=== PATIENT | male | born 1985 | race African-American/Black ===

== ENCOUNTER 2018-08-26 18:23 | Emergency (ER) | payer SELFPAY ==
--- NOTE | 2018-08-26 19:39 | ER Document Report ---
ED Medical Screen (RME) - General Chief Complaint: Chest Pain Stated Complaint: CHEST PAIN Time Seen by Provider: 08/26/18 19:32 TRAVEL OUTSIDE OF THE [place] IN LAST 30 DAYS: No - HPI Notes: 08/26/18 19:37 Patient is a 32-year-old male with no significant past medical history who presents to the emergency department complaining of right sternal chest pain that is been present for about 6 hours and is relatively constant. The pain does not radiate. Patient states there are times where he may feel short of breath, but it is not worsened by ambulation and he does not currently have any sitting in the chair. Patient states that he has had intermittent pain over the last several months. He is not aware of anything that improves or worsens his pain. Denies drug allergies. Patient does admit to smoking cigarettes. Denies any prolonged immobilization, distance travel, recent surgery/trauma, personal cancer history, hormone use, or previous DVT/PE. Denies any headache, fever, URI, sore throat, palpitations, syncope, cough, shortness of breath, wheeze, dyspnea, abdominal pain, nausea/vomiting/diarrhea, urinary retention, dysuria, hematuria. I have treated and performed a rapid initial assessment of this patient. A comprehensive ED assessment and evaluation of the patient, analysis of test results and completion of medical decision making process will be conducted by additional ED providers. PHYSICAL EXAMINATION: Vitals: Heart rate 88 during my exam in triage. GENERAL: Well-appearing, well-nourished and in no acute distress. A&Ox4. Answers questions appropriately. LUNGS: Breath sounds clear to auscultation bilaterally and equal. No wheezes rales or rhonchi. HEART: Regular rate and rhythm without murmurs, rubs, gallops. Extremities: No cyanosis, clubbing, or edema b/l. [place] negative bilaterally. No lower extremity asymmetry. NEUROLOGICAL: Normal speech, normal gait. PSYCH: Normal mood, normal affect. - Related Data Allergies/Adverse Reactions: No Known Allergies Allergy (Verified 08/26/18 18:24) Past Medical History - Social History Family history: None Past Surgical History: Reports: Hx Orthopedic Surgery - Immunizations Hx Diphtheria, Pertussis, Tetanus Vaccination: No Physical Exam - Vital signs Vitals: Temp Pulse Resp BP Pulse Ox 98.4 F 107 H 18 148/91 H 98 08/26/18 18:41 08/26/18 18:41 08/26/18 18:41 08/26/18 18:41 08/26/18 18:41 Course - Vital Signs Vital signs: Temp Pulse Resp BP Pulse Ox 98.4 F 107 H 18 148/91 H 98 08/26/18 18:41 08/26/18 18:41 08/26/18 18:41 08/26/18 18:41 08/26/18 18:41
--- NOTE | 2018-08-26 20:12 | RADIOLOGY REPORT (SQ) ---
EXAM DESCRIPTION: XR CHEST 1 VIEW COMPLETED DATE/TME: 08/26/2018 19:39 CLINICAL HISTORY: 32 years, Male, cp COMPARISON: None. NUMBER OF VIEWS: One TECHNIQUE: Single frontal view of the chest was obtained. LIMITATIONS: None. FINDINGS: Cardiac and mediastinal contours are normal in appearance. Lungs are clear. No pleural effusion or pneumothorax. IMPRESSION: No acute disease. copyright 2010 [employer]- All Rights Reserved
[2018-08-26 20:26] LABS: ABSOLUTE BASOPHILS # (AUTO) 0.1 10^3/uL (0.0-0.2); ABSOLUTE LYMPHOCYTES (AUTO) 2.5 10^3/uL (0.5-4.7); ABSOLUTE MONOCYTES (AUTO) 0.4 10^3/uL (0.1-1.4); ABSOLUTE NEUT (AUTO) 4.9 10^3/uL (1.7-8.2); BASOPHILS % (AUTO) 0.9 % (0-2); EOSINOPHILS % (AUTO) 0.5 % (0-6); HEMATOCRIT 43.9 % (37.9-51.0); HEMOGLOBIN 14.3 g/dL (13.5-17.0); LYMPHOCYTES % (AUTO) 31.3 % (13-45); MEAN CORPUSCULAR HEMOGLOBIN 28.8 pg (27.0-33.4); MEAN CORPUSCULAR HGB CONC 32.5 g/dL (32.0-36.0); MEAN CORPUSCULAR VOLUME 89 fl (80-97); MONOCYTES % (AUTO) 4.9 % (3-13); PLATELET COUNT 332 10^3/uL (150-450); RED BLOOD COUNT 4.95 10^6/uL (4.35-5.55); RED CELL DISTRIBUTION WIDTH 14.5 % (11.5-14.0); SEGMENTED NEUTROPHILS % (AUTO) 62.4 % (42-78); TOTAL CELLS COUNTED % (AUTO) 100 %; WHITE BLOOD COUNT 7.9 10^3/uL (4.0-10.5)
--- NOTE | 2018-08-26 20:26 | ER Document Report ---
ED Cardiac - General Chief Complaint: Chest Pain Stated Complaint: CHEST PAIN Time Seen by Provider: 08/26/18 19:32 Notes: Patient is a 32-year-old male that comes to the emergency department for chief complaint of intermittent discomfort in his chest towards the middle that feels like a "knot", he states he also feels like a "knocking" on the chest intermittently. He started noticing symptoms at around 12:30 PM. He states he has these almost every day for "a while", he states he had some associated shortness of breath with it and decided to be evaluated. He denies nausea/vomiting, fever/chills, headache, dizziness. He denies any current chest pain. He states he has a vague sensation of shortness of breath currently. He denies lower extremity swelling. He smokes, reports marijuana use and occasional cocaine use, he used cocaine 2 days ago reportedly. He denies ever injecting IV drugs. He denies personal or family history of [place]. He denies any diagnosed medical problems. In addition to this he also denies any recent maye el, surgeries, lower extremity swelling. Only PMH reported is orthopedic surgery. TRAVEL OUTSIDE OF THE [place] IN LAST 30 DAYS: No - Related Data Allergies/Adverse Reactions: No Known Allergies Allergy (Verified 08/26/18 18:24) Past Medical History - General Information source: Patient - Social History Smoking Status: Current Every Day Smoker Chew tobacco use (# tins/day): No Smoking Education Provided: Yes - <3 min Frequency of alcohol use: Occasional Drug Abuse: None, Cocaine Lives with: Alone Family History: None Patient has suicidal ideation: No Patient has homicidal ideation: No Renal/ Medical History: Denies: Hx Peritoneal Dialysis Past Surgical History: Reports: Hx Orthopedic Surgery - Immunizations Immunizations up to date: Yes Hx Diphtheria, Pertussis, Tetanus Vaccination: Yes Review of Systems - Review of Systems Constitutional: No symptoms reported EENT: No symptoms reported Cardiovascular: See HPI Respiratory: See HPI Gastrointestinal: No symptoms reported Genitourinary: No symptoms reported Male Genitourinary: No symptoms reported Musculoskeletal: See HPI Skin: No symptoms reported Hematologic/Lymphatic: No symptoms reported Neurological/Psychological: No symptoms reported Physical Exam - Vital signs Vitals: Temp Pulse Resp BP Pulse Ox 98.4 F 107 H 18 148/91 H 98 08/26/18 18:41 08/26/18 18:41 08/26/18 18:41 08/26/18 18:41 08/26/18 18:41 - Notes Notes: GENERAL: Alert, interacts well. No acute distress. HEAD: Normocephalic, atraumatic. EYES: Pupils equal, round, and reactive to light. Extraocular movements intact. ENT: Oral mucosa moist, tongue midline. Oropharynx unremarkable. Airway patent. NECK: Full range of motion. Supple. Trachea midline. LUNGS: Clear to auscultation bilaterally, no wheezes, rales, or rhonchi. No r espiratory distress. Reports pain along right chest wall with movement although none is appreciated on palpation. HEART: Regular rate and rhythm. No murmur ABDOMEN: Soft, non-tender. Non-distended. Bowel sounds present in all 4 quadrants. GENITOURINARY: Deferred EXTREMITIES: Moves all 4 extremities spontaneously. No edema, normal radial and dorsalis pedis pulses bilaterally. Left ankle bracelet. BACK: no cervical, thoracic, lumbar midline tenderness. No saddle anesthesia, normal distal neurovascular exam. Moves all extremities in full range of motion. NEUROLOGICAL: Alert and oriented x3. Normal speech. Cranial nerves II through XII grossly intact. PSYCH: Normal affect, normal mood. SKIN: Warm, dry, normal turgor. No rashes or lesions noted. Course - Re-evaluation Re-evalutation: Patient noted to have a ankle bracelet, however he still states that for the past 2 days he has been outside a lot in the heat. He states he might be dehydrated in addition to his other listed complaints, he was given IV fluids. On recheck he does not have tachycardia. He is not tachycardic on my initial exam either. Chest x-ray unremarkable. CBC, chemistry unremarkable. Troponin negative. Delta troponin was obtained and also negative. EKG did show elevated ST segment anteriorly, however this is unchanged from prior. No acute changes. Symptoms have been going on for over 2 months and are right-sided, atypical, worse with movement. I discussed with Dr. Holm. I do not suspect cardiac etiology, aortic dissection, pulmonary embolism based on his benign but no current symptoms, evaluation, work-up. I did discuss with patient. Discussed that this is most likely the chest wall, pleurisy, although this is not certain. Provided with anti-inflammatory here, placed on anti- inflammatory at home, placed on Pepcid, discussed the extreme risk and likely ultimately with using recreational drugs. I do not suspect endocarditis however because he does not have a fever, murmur on exam, and he denies IV drug abuse. He did discuss return precautions with patient, patient states understanding and agreement. Stable at time of discharge. - Vital Signs Vital signs: Temp Pulse Resp BP Pulse Ox 97.7 F 107 H 13 101/70 100 08/27/18 00:30 08/26/18 18:41 08/27/18 00:30 08/27/18 00:30 08/27/18 00:30 - Laboratory Result Diagrams: 08/26/18 20:09 08/26/18 20:09 Laboratory results interpreted by me: 08/26/18 20:09 RDW 14.5 H - EKG Interpretation by Me Additional EKG results interpreted by me: EKG shows sinus tachycardia at a rate of 111, flattened T waves laterally, isolated ST segment elevation in V2. QTC of 441, DC interval of 148. Normal axis. Discharge - Discharge Clinical Impression: Right-sided chest pain Condition: Stable Disposition: HOME, SELF-CARE Additional Instructions: Your work-up does not indicate any concerning findings at this time. Your symptoms are most likely from the cartilage in your chest wall or from the lining of your lungs (pleurisy). I recommend the naproxen as prescribed, take the famotidine to avoid gastrointestinal upset while taking this. Symptoms should gradually resolve. Follow-up with primary care. Avoid any recreational drugs as these are extremely dangerous and will lead to your . Return if you worsen including fever, increased pain, difficulty breathing, passing out, or any other concerning or worsening symptoms. Prescriptions: Famotidine [Pepcid 20 mg Tablet] 20 mg PO BID #20 tablet Naproxen 500 mg PO BID PRN #20 tablet PRN Reason:
[2018-08-26] MEDS ORDERED: NORMAL SALINE 1000 ML 1,000 ML IV ONE (20:31)
[2018-08-26 20:47] LABS: ALANINE AMINOTRANSFERASE 24 U/L (21-72); ALBUMIN 4.4 g/dL (3.5-5.0); ALKALINE PHOSPHATASE 45 U/L (38-126); ANION GAP 11 (5-19); ASPARTATE AMINO TRANSFERASE 32 U/L (17-59); BILIRUBIN,DIRECT 0.3 mg/dL (0.0-0.4); BILIRUBIN,TOTAL 0.4 mg/dL (0.2-1.3); BLOOD UREA NITROGEN 13 mg/dL (7-20); CARBON DIOXIDE 28 mmol/L (22-30); CHLORIDE 104 mmol/L (98-107); GLUCOSE 103 mg/dL (75-110); SODIUM 142.7 mmol/L (137-145); TOTAL PROTEIN 7.3 g/dL (6.3-8.2)
[2018-08-27] MEDS ORDERED: KETOROLAC TROMETHAMINE INJ/PF 30 MG/1 ML SDV IV ONE
--- NOTE | 2018-08-27 00:03 | EKG REPORT ---
SEVERITY:- BORDERLINE ECG - SINUS TACHYCARDIA BORDERLINE T WAVE ABNORMALITIES : Confirmed by: Pepe Osborn 27-Aug-2018 00:02:17
[2018-08-27 00:34] VITALS: BP 101/70
== END 2018-08-27 00:41 | disposition home or self-care (01) ==
LOC: ER 18:23
DX: R07.9 Chest pain, unspecified (principal); F17.200 Nicotine dependence, unspecified, uncomplicated
CPT/HCPCS: 93005; 99285; 96361; 96374; 36415; 85025; 80053; 84484; 71045; 93010; J1885; J7030

== ENCOUNTER 2018-08-27 02:00 | Emergency (ER) | payer SELFPAY ==
--- NOTE | 2018-08-27 02:11 | ER Document Report ---
Addendum entered and electronically signed by LISA POE MD 08/27/18 14:41: Discharge - Discharge Clinical Impression: Suicidal ideation, Polysubstance abuse Condition: Stable Disposition: HOME, SELF-CARE Additional Instructions: You have been evaluated by both medical and behavioral health providers while in the emergency department. You have been cleared from both acute medical and psychiatric issues. You endorsed suicidal ideation which is felt to be substance induced since your urine drug screen was positive for 3 substances. It is important to establish a working relationship with an outpatient provider for ongoing care and treatment. You stated you have follow up care at [facility] tomorrow (08/28/18) which is an appropriate local provider who offers dual diagnosis (substance abuse and mental health) treatment. You should utilize [facility] (you mentioned you have in the last two weeks) and follow through with voluntary detoxification/substance abuse inpatient hospitalization (you admitted you had been accepted to [facility] but not following through). COCAINE ABUSE: Cocaine causes many dangerous medical problems. Problems can occur even with "usual" amounts. Cocaine affects judgement, creating a sense of invulnerability. Cocaine users often make bad decisions that seem "great" at the time. Most cocaine users eventually will be hurt by bad job performance, damaged personal relations, crime, and unsafe sexual practices. Toxic effects of cocaine can include seizures, hallucinations, delusions, high blood pressure, heart damage, or sudden . There's always the risk of a "bad batch." But heart attacks, brain hemorrhages, or cardiac arrest can occur unpredictably even with "normal" use. Injection of cocaine is risky for abscesses, endocarditis (heart infection), pneumonia, and AIDS. Withdrawal from cocaine often causes anxiety and drug cravings. Some users become paranoid and psychotic. Many treatment programs are available, but you must make the decision to quit. Medication can be prescribed to control the symptoms of cocaine toxicity (beta blockers or benzodiazepines). Withdrawal symptoms may require tr anquilizers. NARCOTIC / OPIOD ABUSE: Narcotics and opiods are pain-relieving drugs that are often abused. They are addicting. Narcotics cause euphoria, but it often takes increasing amounts to "feel good" and avoid withdrawal symptoms. Overdose of narcotics causes small pupils, coma, and decreased breathing. It's a common cause of . Purity of street narcotics is unpredictable. Injection of narcotics is risky for abscesses, endocarditis (heart infection), p neumonia, and AIDS. Withdrawal from narcotics causes goose bumps, watery mouth, sweating, nasal congestion, muscle aches, abdominal cramps, vomiting, and diarrhea. There's often restlessness and confusion. Treatment programs are available, but you must make the decision to quit. Medication (such as clonidine) can be prescribed to control the symptoms of withdrawal. DEPRESSION: Your evaluation reveals that you have mental depression. While symptoms may be vague, they often include disturbance of sleep, fatigue, loss of appetite, and general loss of interest in life. While depression may be a side effect of drugs, or a reaction to a major change in your life, many cases have no known cause. If depression is acute, and related to a major loss in your life, you can expect it to clear completely with time. If you have been depressed a long time, are prone to repeated bouts of depression or low mood, or have been thinking of suicide, get help. Depression can be treated with anti-depressant medication and counselling. Long-term depression will often take a few weeks to clear, even with appropriate medication. Follow-up care is important. SUICIDAL IDEATION: Suicidal ideation is a common medical term for thoughts about suicide, which may be as detailed as a formulated plan, without the suicidal act itself. Although most people who undergo suicidal ideation do not commit suicide, some go on to make suicide attempts. The range of suicidal ideation varies greatly from fleeting to detailed planning, role playing, and unsuccessful attempts. While thoughts about suicide are common, most people do not carry out serious actions to commit suicide. Based upon your evaluation and discussion with you, we do not believe you are currently at risk to act upon your thoughts of suicide. You have agreed to return to the Emergency Department, at any time, if you feel inclined to act upon your suicidal thoughts. FOLLOW-UP CARE: You are being linked to [facility] ([facility]) for voluntary detoxification/substance abuse treatment where mental health is treated secondary. You will meet mobile crisis in the hospital lobby immediately following discharge. You have been provided the outpatient [facility] health resource sheet with the [facility] contact information. You stated you have an appointment at [facility] tomorrow (08/28/18). If you are unable to get voluntary inpatient right away you should attend this appointment to establish ongoing outpatient services. If you experience worsening or a significant change in your symptoms, notify the physician immediately, utilize mobile crisis or return to the Emergency Department at any time for re- evaluation. Referrals: [facility] Crisis Team [Outside] - 08/27/18 [facility] [Outside] - 08/28/18 Addendum entered and electronically signed by STANLEY EVANS LPC 08/27/18 14:25: Discharge - Discharge Clinical Impression: Suicidal ideation, Polysubstance abuse Condition: Stable Disposition: HOME, SELF-CARE Additional Instructions: You have been evaluated by both medical and behavioral health providers while in the emergency department. You have been cleared from both acute medical and psychiatric issues. You endorsed suicidal ideation which is felt to be substance induced since your urine drug screen was positive for 3 substances. It is imp ortant to establish a working relationship with an outpatient provider for ongoing care and treatment. You stated you have follow up care at [facility] tomorrow (08/28/18) which is an appropriate local provider who offers dual diagnosis (substance abuse and mental health) treatment. You should utilize [facility] (you mentioned you have in the last two weeks) and follow through with voluntary detoxification/substance abuse inpatient hospitalization (you admitted you had been accepted to [facility] but not following through). COCAINE ABUSE: Cocaine causes many dangerous medical problems. Problems can occur even with "usual" amounts. Cocaine affects judgement, creating a sense of invulnerability. Cocaine users often make bad decisions that seem "great" at the time. Most cocaine users eventually will be hurt by bad job performance, damaged personal relations, crime, and unsafe sexual practices. Toxic effects of cocaine can include seizures, hallucinations, delusions, high blood pressure, heart damage, or sudden . There's always the risk of a "bad batch." But heart attacks, brain hemorrhages, or cardiac arrest can occur unpredictably even with "normal" use. Injection of cocaine is risky for abscesses, endocarditis (heart infection), pneumonia, and AIDS. Withdrawal from cocaine often causes anxiety and drug cravings. Some users become paranoid and psychotic. Many treatment programs are available, but you must make the decision to quit. Medication can be prescribed to control the symptoms of cocaine toxicity (beta blockers or benzodiazepines). Withdrawal symptoms may require tranquiliz ers. NARCOTIC / OPIOD ABUSE: Narcotics and opiods are pain-relieving drugs that are often abused. They are addicting. Narcotics cause euphoria, but it often takes increasing amounts to "feel good" and avoid withdrawal symptoms. Overdose of narcotics causes small pupils, coma, and decreased breathing. It's a common cause of . Purity of street narcotics is unpredictable. Injection of narcotics is risky for abscesses, endocarditis (heart infection), pneumonia, and AIDS. Withdrawal from narcotics causes goose bumps, watery mouth, sweating, nasal congestion, muscle aches, abdominal cramps, vomiting, and diarrhea. There's often restlessness and confusion. Treatment programs are available, but you must make the decision to quit. Medication (such as clonidine) can be prescribed to control the symptoms of withdrawal. DEPRESSION: Your evaluation reveals that you have mental depression. While symptoms may be vague, they often include disturbance of sleep, fatigue, loss of appetite, and general loss of interest in life. While depression may be a side effect of drugs, or a reaction to a major change in your life, many cases have no known cause. If depression is acute, and related to a major loss in your life, you can e xpect it to clear completely with time. If you have been depressed a long time, are prone to repeated bouts of depression or low mood, or have been thinking of suicide, get help. Depression can be treated with anti-depressant medication and counselling. Long-term depression will often take a few weeks to clear, even with appropriate medication. Follow-up care is important. SUICIDAL IDEATION: Suicidal ideation is a common medical term for thoughts about suicide, which may be as detailed as a formulated plan, without the suicidal act itself. Although most people who undergo suicidal ideation do not commit suicide, some go on to make suicide attempts. The range of suicidal ideation varies greatly from fleeting to detailed planning, role playing, and unsuccessful attempts. While thoughts about suicide are common, most people do not carry out serious actions to commit suicide. Based upon your evaluation and discussion with you, we do not believe you are currently at risk to act upon your thoughts of suicide. You have agreed to return to the Emergency Department, at any time, if you feel inclined to act upon your suicidal thoughts. FOLLOW-UP CARE: You are being linked to [facility] ([facility]) for voluntary detoxification/substance abuse treatment where mental health is treated secondary. You will meet mobile crisis in the hospital lobby immediately following discharge. You have been provided the outpatient mental health resource sheet with the [facility] contact information. You stated you have an appointment at [facility] tomorrow (08/28/18). If you are unable to get voluntary inpatient right away you should attend this appointment to establish ongoing outpatient services. If you experience worsening or a significant change in your symptoms, notify the physician immediately, utilize mobile crisis or return to the Emergency Department at any time for re- evaluation. Referrals: [facility] [Outside] - 08/28/18 [facility] Crisis Team [Outside] - 08/27/18 Original Note: ED General - General Stated Complaint: PSYCH PROBLEM Time Seen by Provider: 08/27/18 02:05 Notes: Patient is a 32-year-old male with a past medical history of depression, polysubstance abuse, was just seen here earlier today for right-sided chest pain who returns by EMS due to concerns of suicidal ideation. The patient states that he took heroin cocaine together earlier today to try to kill himself but failed to mention this during his previous visit. He states upon leaving he realized that he was still suicidal, contacted EMS that he could stay at a safe place. States that his plan would be to overdose on heroin. Has a history of psychiatric diagnoses in the past but cannot recall anything beyond depression. States that he was on trazodone, Prozac and haloperidol. No obvious exacerbating or alleviating factor to his suicidality. States that he attempts to self medicate using her cocaine. Denies any ongoing acute medical concerns. TRAVEL OUTSIDE OF THE [place] IN LAST 30 DAYS: No - Related Data Allergies/Adverse Reactions: No Known Allergies Allergy (Verified 08/27/18 02:55) Past Medical History - General Information source: Patient - Social History Smoking Status: Current Every Day Smoker Frequency of alcohol use: Occasional Drug Abuse: Cocaine, Heroin Lives with: Family Family History: Reviewed & Not Pertinent Renal/ Medical History: Denies: Hx Peritoneal Dialysis Past Surgical History: Reports: Hx Orthopedic Surgery - Immunizations Hx Diphtheria, Pertussis, Tetanus Vaccination: No Review of Systems - Review of Systems Notes: Constitutional: Negative for fever. HENT: Negative for sore throat. Eyes: Negative for visual changes. Cardiovascular: Negative for chest pain. Respiratory: Negative for shortness of breath. Gastrointestinal: Negative for abdominal pain, vomiting or diarrhea. Genitourinary: Negative for dysuria. Musculoskeletal: Negative for back pain. Skin: Negative for rash. Neurological: Negative for headaches, weakness or numbness. 10 point ROS negative except as marked above and in HPI. Physical Exam - Vital signs Vitals: Temp Pulse Resp BP Pulse Ox 97.4 F 60 18 125/79 99 08/27/18 02:38 08/27/18 02:38 08/27/18 02:38 08/27/18 02:38 08/27/18 02:38 Interpretation: Normal Notes: PHYSICAL EXAMINATION: GENERAL: Well-appearing, well-nourished and in no acute distress. HEAD: Atraumatic, normocephalic. EYES: Pupils equal round and reactive to light, extraocular movements intact, sclera anicteric, conjunctiva are normal. ENT: nares patent, oropharynx clear without exudates. Moist mucous membranes. NECK: Normal range of motion, supple without lymphadenopathy LUNGS: Breath sounds clear to auscultation bilaterally and equal. No wheezes rales or rhonchi. HEART: Regular rate and rhythm without murmurs ABDOMEN: Soft, nontender, normoactive bowel sounds. No guarding, no rebound. No masses appreciated. EXTREMITIES: Normal range of motion, no pitting or edema. No cyanosis. NEUROLOGICAL: No focal neurological deficits. Moves all extremities spontaneously and on command. PSYCH: Normal mood, normal affect. SKIN: Warm, Dry, normal turgor, no rashes or lesions noted. Course - Re-evaluation Re-evalutation: 08/27/18 02:10 Patient presents with suicidal ideation with a plan to overdose on heroin. Patient was here several hours ago, states that he failed to admit to the preceding provider that he was suicidal and had taken heroin cocaine earlier today as a suicide attempt. Patient has a psychiatric history of depression and previously was on Haldol, trazodone, Prozac but is currently off all his medications. Patient's medical screening exam unremarkable. Medical screening labs are pending. Patient is otherwise cleared for evaluation and disposition by [facility] in the morning. 08/27/18 03:27 Medical screening labs are unremarkable. Patient is cleared for evaluation by [facility]. - Vital Signs Vital signs: Temp Pulse Resp BP Pulse Ox 97.4 F 60 18 125/79 99 08/27/18 02:38 08/27/18 02:38 08/27/18 02:38 08/27/18 02:38 08/27/18 02:38 - Laboratory Result Diagrams: 08/27/18 02:20 08/27/18 02:20 Laboratory results interpreted by me: 08/27/18 08/27/18 08/27/18 02:20 02:20 02:34 Hgb 13.3 L RDW 14.4 H Chloride 108 H Urine Protein 100 H Urine Ketones TRACE H Urine Bilirubin SMALL H Urine Urobilinogen 2.0 H Salicylates < 1.0 L Acetaminophen < 10 L - EKG Interpretation by Me Additional EKG results interpreted by me: 08/27/18 03:26 Sinus rhythm, rate 59. No ST elevations or depressions. QTC is 397. Discharge - Discharge Clinical Impression: Suicidal ideation, Polysubstance abuse Condition: Fair Disposition: PSYCH HOSP/UNIT
[2018-08-27 02:30] LABS: ABSOLUTE EOSINOPHILS # (AUTO) 0.2 10^3/uL (0.0-0.6); ABSOLUTE LYMPHOCYTES (AUTO) 3.9 10^3/uL (0.5-4.7); ABSOLUTE MONOCYTES (AUTO) 0.6 10^3/uL (0.1-1.4); ABSOLUTE NEUT (AUTO) 4.3 10^3/uL (1.7-8.2); BASOPHILS % (AUTO) 0.6 % (0-2); EOSINOPHILS % (AUTO) 2.2 % (0-6); HEMOGLOBIN 13.3 g/dL (13.5-17.0); LYMPHOCYTES % (AUTO) 43.2 % (13-45); MEAN CORPUSCULAR HEMOGLOBIN 28.9 pg (27.0-33.4); MEAN CORPUSCULAR HGB CONC 32.5 g/dL (32.0-36.0); MEAN CORPUSCULAR VOLUME 89 fl (80-97); MONOCYTES % (AUTO) 6.5 % (3-13); PLATELET COUNT 328 10^3/uL (150-450); RED BLOOD COUNT 4.61 10^6/uL (4.35-5.55); RED CELL DISTRIBUTION WIDTH 14.4 % (11.5-14.0); SEGMENTED NEUTROPHILS % (AUTO) 47.5 % (42-78); TOTAL CELLS COUNTED % (AUTO) 100 %
[2018-08-27 02:46] LABS: ACETAMINOPHEN < 10 ug/mL (10-30); ALANINE AMINOTRANSFERASE 26 U/L (21-72); ALCOHOL < 10 mg/dL (NONE DETECTED); ALKALINE PHOSPHATASE 39 U/L (38-126); ANION GAP 9 (5-19); ASPARTATE AMINO TRANSFERASE 29 U/L (17-59); BILIRUBIN,DIRECT 0.3 mg/dL (0.0-0.4); BILIRUBIN,TOTAL 0.6 mg/dL (0.2-1.3); BLOOD UREA NITROGEN 12 mg/dL (7-20); CALCIUM 9.4 mg/dL (8.4-10.2); CARBON DIOXIDE 25 mmol/L (22-30); CHLORIDE 108 mmol/L (98-107); GLUCOSE 87 mg/dL (75-110); POTASSIUM 3.7 mmol/L (3.6-5.0); SALICYLATE < 1.0 mg/dL (2.0-20.0); SODIUM 141.9 mmol/L (137-145); TOTAL PROTEIN 6.9 g/dL (6.3-8.2)
[2018-08-27 02:47] LABS: APPEARANCE,URINE SLIGHTLY-CLOUDY; BILIRUBIN,URINE SMALL (NEGATIVE); COLOR,URINE DARK YELLOW; GLUCOSE, URINE NEGATIVE (NEGATIVE); KETONES,URINE TRACE mg/dL (NEGATIVE); LEUKOCYTE ESTERASE,URINE NEGATIVE (NEGATIVE); NITRITE,URINE NEGATIVE (NEGATIVE); PROTEIN,URINE 100 mg/dL (NEGATIVE); URINE SPECIFIC GRAVITY 1.039
[2018-08-27 03:37] LABS: URINE AMPHETAMINES SCREEN NEGATIVE; URINE BARBITURATES SCREEN NEGATIVE; URINE BENZODIAZEPINES SCREEN NEGATIVE; URINE COCAINE SCREEN UNCONFIRMED POSITIVE; URINE MARIJUANA (THC) SCREEN UNCONFIRMED POSITIVE; URINE METHADONE SCREEN NEGATIVE; URINE PHENCYCLIDINE SCREEN NEGATIVE
--- NOTE | 2018-08-27 06:57 | EKG REPORT ---
SEVERITY:- BORDERLINE ECG - SINUS RHYTHM BORDERLINE T WAVE ABNORMALITIES : Confirmed by: Pepe Osborn 27-Aug-2018 06:56:36
--- NOTE | 2018-08-27 09:27 | ER Document Report ---
Doctor's Note Notes: 08/27/18 09:27 32-year-old male with suicidal ideations with thoughts of opiate overdose. Positive for cocaine, marijuana, and opiates. Awaiting psychiatric evaluation. Vital signs are currently stable. Labs as recorded. 08/27/18 14:40 She denies any suicidal or Rolf ideations at this time. The psychiatry team is seen and assessed the patient. They do not believe that the patient meets IVC criteria at this time. Drug screen as recorded. Patient denies any suicidal ideations at this moment. Patient had a previous acceptance at the [facility] but did not follow through. They have set up for mobile crisis to meet the patient in the lobby. Patient also has an appointment with [facility] tomorrow. Patient is very comfortable with this plan.
[2018-08-27 15:24] VITALS: BP 136/89
--- NOTE | 2018-08-27 22:03 | PSYCHOLOGICAL NOTE ---
Psych Note - Psych Note Date seen by psych provider: 08/27/18 Psych Note: Diagnosis: Polysubstance Use Cocaine Use Disorder Opioid Use Disorder Cannabis Use Disorder Bipolar Disorder by History per patient Impression/Plan: Patient is cleared from acute psychiatric services. He endorsed SI x 2 weeks where he has reached out to Mobile Crisis Management ([facility]). Note he came to the ED twice yesterday, the first time for chest pain and never mentioned SI, was discharged then returned via EMS for SI. He stated it started out passive but led to thinking about slitting wrist. He stated he had a knife in his room the past 2 weeks. With this he never took action. Mother stated she removed the knife and from what she could see/knew there were not other knives in the room. She denied any access to firearms in the home. Patient noted he has been off medications for a year and self medicates with Cocaine. He admitted to snorting Heroin and Cocaine yesterday but denied regular Heroin Use. He stated he an an initial assessment at [facility] and has follow up tomorrow (08/28/18). He admitted [facility] was helping him with placement, he got a call back from the [facility] and he goes back and forth with thinking/wanting help so procrastinated and did not follow through. Plan was to discharge to [facility] for reassessment in the lobby. [facility] identified they still have an open case, have made linkage and referrals and are waiting for placement at [facility] (application completed, voluntary substance abuse and mental health treatment). Patient was encouraged to follow through with [facility] recommendations and while waiting on bed availability to go to [facility] appointment tomorrow (08/28/18). Mother included in plan of care. SI felt to be substance induced and he needs a treatment facility where focus is substance with secondary mental health ([facility]). Patient provided with outpatient MH resource sheet which highlighted both [facility] and [facility]. Consulted with Dr. Santiago regarding the management and care of patient. ED Physician in agreement with recommendations.
== END 2018-08-27 15:26 | disposition home or self-care (01) ==
LOC: ER 02:00
DX: R45.851 Suicidal ideations (principal); F11.10 Opioid abuse, uncomplicated; F14.10 Cocaine abuse, uncomplicated; F17.200 Nicotine dependence, unspecified, uncomplicated
CPT/HCPCS: 36415; 80053; 80307; 81001; 85025; 93005; 93010; 99285

== ENCOUNTER 2019-02-20 19:57 | Emergency (ER) | payer SELFPAY ==
[2019-02-20] MEDS ORDERED: IBUPROFEN 800 MG TABLET PO ONE (21:39)
--- NOTE | 2019-02-20 21:41 | ER Document Report ---
ED Medical Screen (RME) - General Chief Complaint: Headache Stated Complaint: HEADACHE,NON PRODUCTIVE COUGH,CHEST PAIN Time Seen by Provider: 02/20/19 21:37 Notes: Patient is a 33-year-old male presents to the emergency department for generaliz ed nasal congestion and sore throat. Patient's admitting to subjective fever as well as a headache. Patient's denying any cough or shortness of breath. Denying any chest pain, abdominal pain, nausea, vomiting. Voices he did not take any [id number] medications for symptoms. Patient was typing on cell phone throughout entire HPI and exam. GENERAL: Alert, interacts well. No acute distress. LUNGS: Clear to auscultation bilaterally, no wheezes, rales, or rhonchi. No respiratory distress. I have greeted and performed a rapid initial assessment of this patient. A comprehensive ED assessment and evaluation of the patient, analysis of test results and completion of the medical decision making process will be conducted by additional ED providers. I have specifically instructed the patient or family members with the patient to immediately return to any nursing staff should anything change in the patient's condition or with their chief complaint. This medical record was dictated with voice recognizing software. There may be grammatical, syntax errors that are unintended. TRAVEL OUTSIDE OF THE [place] IN LAST 30 DAYS: No - Related Data Allergies/Adverse Reactions: No Known Allergies Allergy (Verified 08/27/18 02:55) Past Medical History - Social History Family history: None Renal/ Medical History: Denies: Hx Peritoneal Dialysis Psychiatric Medical History: Reports: Hx Depression Past Surgical History: Reports: Hx Orthopedic Surgery - Immunizations Hx Diphtheria, Pertussis, Tetanus Vaccination: No
--- NOTE | 2019-02-20 23:04 | ER Document Report ---
HPI - HPI Time Seen by Provider: 02/20/19 21:37 Pain Level: 3 Context: Patient is a 33-year-old male that comes to the emergency department for chief complaint of sore throat and congestion for the past 2 days. He denies cough, fever, headache, chest pain, abdominal pain. He did state that earlier it felt like it was hurting down into his throat and neck. He is still able to swallow. He states he was exposed to his niece who has similar symptoms. He admits to s moking but denies history of asthma. Home medications include Haldol and trazodone, he does have reported history of recreational drug abuse as well. Past Medical History - General Information source: Patient - Social History Smoking Status: Current Every Day Smoker Chew tobacco use (# tins/day): No Frequency of alcohol use: Rare Drug Abuse: Cocaine, Heroin, Marijuana Lives with: Family Family History: Reviewed & Not Pertinent Patient has suicidal ideation: No Patient has homicidal ideation: No Renal/ Medical History: Denies: Hx Peritoneal Dialysis Psychiatric Medical History: Reports: Hx Depression Past Surgical History: Reports: Hx Orthopedic Surgery - Immunizations Hx Diphtheria, Pertussis, Tetanus Vaccination: No Vertical Provider Document - CONSTITUTIONAL General Appearance: WD/WN, No Apparent Distress - INFECTION CONTROL TRAVEL OUTSIDE OF THE [place] IN LAST 30 DAYS: No - HEENT HEENT: Atraumatic, Normocephalic. negative: Normal ENT Exam - Mild congestion of the nasal passages, nontender sinuses, mild erythema of the posterior pharynx, oral pharyngeal exam unremarkable otherwise. Eyes normal. Ears unremarkable with moderate cerumen. - NECK Neck: Other - Minimal anterior cervical adenopathy. Unremarkable neck exam otherwise. - RESPIRATORY Respiratory: Breath Sounds Normal, No Respiratory Distress - CARDIOVASCULAR Cardiovascular: Regular Rate, Regular Rhythm, No Murmur. negative: Tachycardia - GI/ABDOMEN Gastrointestinal: Abdomen Soft, Abdomen Non-Tender - BACK Back: Normal Inspection - MUSCULOSKELETAL/EXTREMETIES Musculoskeletal/Extremeties: MAEW, FROM, Non-Tender - NEURO Level of Consciousness: Awake, Alert, Appropriate Motor/Sensory: No Motor Deficit, No Sensory Deficit - DERM Integumentary: Warm, Dry, No Rash Course - Re-evaluation Re-evalutation: Patient smiling, talkative, well-appearing, chatting on his cell phone. Unremarkable vital signs, mild nasal congestion, borderline erythema of the posterior pharynx, clear lungs, unremarkable physical exam otherwise. Patient is also had viral exposure in the family reportedly. Strep is negative. Discussed with patient. Given dexamethasone for his sore throat and mild cervical adenopathy, discussed expectations, follow-up, return precautions. Patient states understanding and agreement. Discharge - Discharge Clinical Impression: Sore throat, Nasal congestion Condition: Stable Disposition: HOME, SELF-CARE Additional Instructions: Your strep test is negative. Your evaluation is consistent with a viral illness causing your sore throat and symptoms. This should resolve with time. [id number] medication such as Tylenol, ibuprofen, nasal spray, decongestants can help. Follow-up with primary care. Return if you worsen including difficulty swallowing or breathing, fever, or any other concerning or worsening symptoms.
[2019-02-20] MEDS ORDERED: DEXAMETHASONE SOD PHOS INJ 10 MG/1 ML VIAL IM ONE (23:27)
== END 2019-02-20 23:52 | disposition home or self-care (01) ==
LOC: ER 19:57
DX: J02.9 Acute pharyngitis, unspecified (principal); R09.81 Nasal congestion; F17.200 Nicotine dependence, unspecified, uncomplicated
CPT/HCPCS: 99284; 96372; 87070; 87880; J1100

== ENCOUNTER 2019-09-11 08:25 | Emergency (ER) | payer SELFPAY ==
--- NOTE | 2019-09-11 11:33 | ER Document Report ---
HPI - HPI Patient complains to provider of: Runny nose cough allergies Time Seen by Provider: 09/11/19 11:27 Onset: Just prior to arrival Onset/Duration: Intermittent Quality of pain: No pain Severity: None Pain Level: Denies Context: 33-year-old male presented to ED for work note. He states he has allergies to something that is pollinating right now and is worse that he had to come to the emergency room to get a work note before he can go back to work. Associated Symptoms: Nonproductive cough, Sinus pain/drainage Exacerbated by: Denies Relieved by: Denies Similar symptoms previously: Yes Recently seen / treated by doctor: No - ROS ROS below otherwise negative: Yes - CONSTITUTIONAL Constitutional: DENIES: Fever, Chills - EENT EENT: REPORTS: Nasal Drainage-Clear - NEURO Neurology: DENIES: Headache, Weakness, Vision blurred, Dizzinesss / Vertigo - CARDIOVASCULAR Cardiovascular: DENIES: Chest pain - RESPIRATORY Respiratory: REPORTS: Coughing - GASTROINTESTINAL Gastrointestinal: DENIES: Abdominal Pain, Nausea, Patient vomiting, Diarrhea, Constipation, Black / Bloody Stools - URINARY Urinary: DENIES: Dysuria, Urgency, Frequency - REPRODUCTIVE Reproductive: DENIES: :, Postmenopausal, Abnormal bleeding / discharge - MUSCULOSKELETAL Musculoskeletal: DENIES: Extremity pain, Back Pain, Neck Pain, Swelling - DERM Skin Color: Normal Skin Problems: None Past Medical History - General Information source: Patient - Social History Smoking Status: Current Every Day Smoker Cigarette use (# per day): Yes - Back per day Chew tobacco use (# tins/day): No Smoking Education Provided: Yes - 4 minutes Frequency of alcohol use: Heavy - A pint a day liquor Drug Abuse: Marijuana Lives with: Family Family History: Reviewed & Not Pertinent Patient has homicidal ideation: No - Past Medical History Cardiac Medical History: Reports: None Pulmonary Medical History: Reports: None EENT Medical History: Reports: None Neurological Medical History: Reports: None Endocrine Medical History: Reports: None Renal/ Medical History: Reports: None Malignancy Medical History: Reports None GI Medical History: Reports: None Musculoskeletal Medical History: Reports None Skin Medical History: Reports None Psychiatric Medical History: Reports: Hx Depression Traumatic Medical History: Reports: None Infectious Medical History: Reports: None Past Surgical History: Reports: Hx Orthopedic Surgery - Immunizations Hx Diphtheria, Pertussis, Tetanus Vaccination: No Vertical Provider Document - CONSTITUTIONAL Agree With Documented VS: Yes Exam Limitations: No Limitations General Appearance: WD/WN, No Apparent Distress - INFECTION CONTROL TRAVEL OUTSIDE OF THE [place] IN LAST 30 DAYS: No - HEENT HEENT: Atraumatic, Normocephalic Notes: Mild nasal drainage - NECK Neck: Normal Inspection, Supple, Thyroid Normal - RESPIRATORY Respiratory: Breath Sounds Normal, No Respiratory Distress, Chest Non-Tender Notes: Mild nonproductive cough - CARDIOVASCULAR Cardiovascular: Regular Rate, Regular Rhythm, No Murmur - GI/ABDOMEN Gastrointestinal: Abdomen Soft, Abdomen Non-Tender, Abdomen Tender - MUSCULOSKELETAL/EXTREMETIES Musculoskeletal/Extremeties: MAEW, Non-Tender - NEURO Level of Consciousness: Awake, Alert, Appropriate Motor/Sensory: No Motor Deficit Deep Tendon Reflexes: 2+ - DERM Integumentary: Warm, Dry, No Rash Course - Re-evaluation Re-evalutation: 09/11/19 11:40 Patient has a very mild allergic rhinitis. I have given him instructions on medications to help him with the symptoms rather than stay out of work. He has verbalized understanding and agreement treatment plan patient was discharged home. - Vital Signs Vital signs: Temp Pulse Resp BP Pulse Ox 98.1 F 92 20 139/84 H 99 09/11/19 08:50 09/11/19 08:31 09/11/19 08:31 09/11/19 08:31 09/11/19 08:31 Discharge - Discharge Clinical Impression: Allergic sinusitis Condition: Stable Disposition: HOME, SELF-CARE Additional Instructions: You were seen today for allergic rhinitis or seasonal allergies. You have been recommended treatment with Claritin 10 mg Sudafed 30 mg and Mucinex 600 mg. These are all ieqz-nlx-upsbuab medications for cough cold congestion. You do need to call the go to the pharmacist to get the Sudafed from behind the counter please get a little red pills they are more effective. You could also use Flonase which is [id number]-[id number] 1 spray each nostril twice a day. You could also use salt soda solution gargles. These will help to remove the drainage from the back your throat. Chloraseptic spray was [id number] that will also help with your sore throat. Salt and soda solution gargle 1 quart of water 1 tablespoon of salt 1 teaspoon of baking soda Mixed 3 ingredients together and boil for 1 minute Placed in a covered quart jar Use 1/2 ounce of cold solution to gargle 3 times a day USE OF ACETAMINOPHEN (Tylenol): Acetaminophen may be taken for pain relief or fever control. It's much safer than aspirin, offering a wider range of "safe" dosages. It is safe during . Some brand names are Tylenol, Panadol, Datril, Anacin 3, Tempra, and Liquiprin. Acetaminophen can be repeated every four hours. The following are maximum recommended dosages: >89 pounds or adults 650 mg to 900 mg Acetaminophen can be repeated every four hours. Maximum dose not to exceed 4000 mg a day. SMOKING: If you smoke, you should stop smoking. The tar and chemicals in cigarette smoke are harmful. Smoking has been shown to cause: emphysema chronic bronchitis lung cancer mouth and throat cancer stomach and pancreas cancer premature aging defects In addition, smoking increases ear and lung infections in children of smokers. FOLLOW-UP CARE: If you have been referred to a physician for follow-up care, call the physicians office for an appointment as you were instructed or within the next two days. If you experience worsening or a significant change in your symptoms, notify the physician immediately or return to the Emergency Department at any time for re-evaluation. Forms: Elevated Blood Pressure, Smoking Cessation Education, Return to Work
[2019-09-11 11:46] VITALS: BP 128/74
== END 2019-09-11 11:45 | disposition home or self-care (01) ==
LOC: ER 08:25
DX: J30.9 Allergic rhinitis, unspecified (principal); R05 Cough; F17.210 Nicotine dependence, cigarettes, uncomplicated; Z71.6 Tobacco abuse counseling; F12.10 Cannabis abuse, uncomplicated
CPT/HCPCS: 99283; 99406